=== PATIENT | female | born 1985 | race Caucasian/White ===

== ENCOUNTER 2017-04-11 11:07 | Emergency (ER) | payer SELFPAY ==
[2017-04-11 11:20] VITALS: BP 150/45; PULSE 79; TEMP 98.2; BMI 26.2
--- NOTE | 2017-04-11 11:45 | PDOC ---
History of Present Illness - General Chief Complaint: Injury Stated Complaint: INJURY, HEADACHE Time Seen by Provider: 04/11/17 11:35 History Source: Patient Exam Limitations: No Limitations - History of Present Illness Initial Comments: 04/11/17 12:32 States last night while at the airport in the [place] back to the [place], stumbled while trying to restrain a small nephew and fell forward from 2 steps landing on her face. Did not have any loss of consciousness but was dizzy. States had bleeding and drainage from her nose, and has had multiple ecchymoses and swelling to forehead cheek and face. States also has some neck tenderness., Denies any extremity injury. States all of impact was primarily to her head and face. Received some "injection for pain" at the airport today and drove herself here. 04/11/17 15:07 Occurred: reports: yesterday Severity: reports: severe Pain Location: reports: face, neck Method of Injury: Yes: fall Modifying Factors: improves with: pain medication Loss of Consciousness: dazed Associated Symptoms (Fall): dizziness, headache, neck pain Past History - Travel Traveled outside of the country in the last 30 days: No Close contact w/someone who was outside of country & ill: No - Past Medical History Allergies/Adverse Reactions: Allergies Allergy/AdvReac Type Severity Reaction Status Date / Time No Known Allergies Allergy Verified 04/11/17 11:15 Home Medications: Ambulatory Orders Amoxicillin - [Amoxicillin 500mg Capsule -] 500 mg PO TID #21 capsule 04/11/17 Oxycodone HCl/Acetaminophen [Percocet 5-325 mg Tablet -] 1 - 2 tab PO Q4H PRN # 10 tablet MDD 6 04/11/17 Anemia: Yes (SLIGHT) Asthma: No Cancer: No Cardiac Disorders: No CVA: No COPD: No CHF: No Dementia: No Diabetes: No GI Disorders: No Disorders: No HTN: No Hypercholesterolemia: No Liver Disease: No Seizures: No Thyroid Disease: No - Surgical History Abdominal Surgery: No Appendectomy: No Cardiac Surgery: No Cholecystectomy: No Lung Surgery: No Neurologic Surgery: No Orthopedic Surgery: Yes (LEFT KNEE ARTHROSCOPY 2011) - Psycho/Social/Smoking Cessation Hx Anxiety: No Suicidal Ideation: No Smoking Status: No Smoking History: Never smoked Have you smoked in the past 12 months: No Number of Cigarettes Smoked Daily: 0 Cigars Per Day: 0 Hx Alcohol Use: No Drug/Substance Use Hx: No Substance Use Type: None Hx Substance Use Treatment: No Trauma Specific PMHX - Complaint Specific PMHX Back Injury: No Neck Injury: No Review of Systems - Review of Systems Able to Perform ROS?: Yes Is the patient limited Somali proficient: Yes Constitutional: Yes: Symptoms Reported, See HPI, Malaise HEENTM: Yes: Symptoms Reported, See HPI, Eye Pain, Nose Pain Respiratory: Yes: See HPI. No: Symptoms reported : No: Symptoms Reported Musculoskeletal: Yes: Symptoms Reported, Back Pain Integumentary: Yes: Symptoms Reported, See HPI, Bruising Neurological: Yes: Symptoms reported, See HPI, Headache. No: Numbness, Paresthesia All Other Systems: Reviewed and Negative *Physical Exam - Vital Signs Last Vital Signs Temp Pulse Resp BP Pulse Ox 98.2 F 79 19 150/45 99 04/11/17 11:15 04/11/17 11:15 04/11/17 11:15 04/11/17 11:15 04/11/17 11:15 - Physical Exam General Appearance: Yes: Nourished, Appropriately Dressed, Apparent Distress, Moderate Distress, Severe Distress (bilateral) HEENT: positive: EOMI, FELIPE, Normal Voice, TMs Normal, Pharynx Normal, Rhinorrhea, Sinus Tenderness (facial pain and tenderness with brusiong and [id number] from fall. Has some mild crepitus to the inner aspect of the right canthus bleeding from nose), Other (tenderness to periorbital rims- he right side than the left with some mild crepitus noted in the inner aspect of the right orbital rim. Nose is swollen with tenderness and crepitus at bridge, negative EOM). negative: Normal ENT Inspection Neck: positive: Tender (no cspine tenderness ), Trachea midline, Supple, Other ( no cspine pain ) Respiratory/Chest: positive: Lungs Clear, Normal Breath Sounds. negative: Chest Tender Gastrointestinal/Abdominal: positive: Normal Bowel Sounds, Tender, Soft, Tenderness (oozing noted to lower quadrant of abdomen, no rebound or guarding). negative: Guarding, Rebound Musculoskeletal: positive: Normal Inspection. 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 Mesa, and agrees that studies do not reveal any further soft tissue injuries to face/ neck- airways patent, no esophagus or tracheal protrusion. Facial bones intact. We'll discharge with diagnosis of open nasal fracture and start amoxicillin by mouth. Given information for ear nose and throat physician and instructed to schedule a evaluation next week . Given #10 Percocet tablets for pain relief 04/11/17 14:50 04/11/17 14:51 *DC/Admit/Observation/Transfer Diagnosis at time of Disposition: Contusion, multiple sites Nasal bones, open fracture Qualifiers: Encounter type: initial encounter Qualified Code(s): S02.2XXB - Fracture of nasal bones, initial encounter for open fracture - Discharge Dispostion Disposition: HOME Condition at time of disposition: Stable Admit: No - Prescriptions Prescriptions: Amoxicillin - [Amoxicillin 500mg Capsule -] 500 mg PO TID #21 capsule Oxycodone HCl/Acetaminophen [Percocet 5-325 mg Tablet -] 1 - 2 tab PO Q4H PRN # 10 tablet MDD 6 PRN Reason: Pain - Referrals Referrals: Ricky Martin MD [Primary Care Provider] - Ashok Wadsworth MD [Staff Physician] - - Patient Instructions Printed Discharge Instructions: DI for Nose Fracture, Easy Bruising ( Alternative Therapy) Additional Instructions: Rest, ice to area on and off for 15 minutes 4-6 times a day Avoid heavy lifting or exercise until pain and swelling is resolved or until further directed Keep area highly elevated to reduce swelling Use splints/Matthew wrap as directed Followup with orthopedist in one to 2 days if not improving, if significantly improved may wait one week for followup with orthopedist May use ibuprofen 2-200 mg tablets every 6 hours as needed for pain Amoxicillin 500 mg tablet every 8 hours for one week Continue ice packs to face to help reduce some swelling and bruising use Vaseline or bacitracin ointment just in the anterior aspect of nostrils to keep airways moist Drink lots of fluids to replace any blood loss Consider humidifier in room at night to avoid drying of mucous membranes Never uses any instrument/Q-tips/fingers into nostrils to avoid dislodging scabbing and recurrence of bleeding Do not blow nose, and do not put any cotton balls or Kleenex into nose to help stop bleeding If nosebleeds occur frequently have evaluation by ear nose and throat doctor for possible further treatment and cauterization Return to emergency department for inability to stop nosebleed, lightheadedness , fevers, or any other worsened symptoms - Post Discharge Activity Work/School Note: Back to Work
[2017-04-11] MEDS ORDERED: OXYCODONE/APAP 5/325MG COMBO TABLET PO ONE (12:02)
[2017-04-11] MEDS ORDERED: OXYCODONE/APAP 5/325MG COMBO TABLET ONE (12:03)
[2017-04-11 12:05] LABS: URINE APPEARANCE CLEAR; URINE BILIRUBIN NEGATIVE (NEGATIVE); URINE BLOOD 1+ (NEGATIVE); URINE COLOR STRAW; URINE GLUCOSE (UA) NEGATIVE (NEGATIVE); URINE KETONE NEGATIVE (NEGATIVE); URINE LEUK ESTERASE NEGATIVE (NEGATIVE); URINE NITRITE NEGATIVE (NEGATIVE); URINE PROTEIN NEGATIVE (NEGATIVE); URINE UROBILINOGEN NEGATIVE mg/dL (0.2-1.0)
[2017-04-11 12:09] LABS: URINE MUCUS RARE; URINE RBC 1 /hpf (0-3); URINE WBC <1 /hpf (3-5)
== END 2017-04-11 15:29 | disposition home or self-care (01) ==
LOC: JERFT 11:07
DX: S00.83XA Contusion of other part of head, initial encounter (principal); S05.12XA Contusion of eyeball and orbital tissues, left eye, initial encounter; S05.11XA Contusion of eyeball and orbital tissues, right eye, initial encounter; M54.2 Cervicalgia; W10.8XXA Fall (on) (from) other stairs and steps, initial encounter; Y93.89 Activity, other specified; Y92.520 Airport as the place of occurrence of the external cause; Y99.8 Other external cause status
CPT/HCPCS: 70150-TC; 70450-TC; 72125-TC; 81003; 81015; 84703; 99281-25